=== PATIENT | female | born 2005 | race Caucasian/White ===

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

== ENCOUNTER 2024-05-22 09:06 | Emergency (ER) | payer MEDICAID, SELFPAY ==
[2024-05-22 09:07] VITALS: BP 139/68; PULSE 49; RESP 16; TEMP 36.2; O2SAT 98; BMI 18.0
--- NOTE | 2024-05-22 09:28 | ED.VIS.GI ---
HPI HPI - GI History of Present Illness Chief Complaint: Nausea/Vomiting Informant: patient and friend Narrative Narrative: Patient states she is currently on day #4 having dysuria, frequency. She went to urgent care yesterday and was prescribed Pyridium and an antibiotic, she is not sure which one it was. She has not been able to take the pills after taking the first doses because she started vomiting and has been vomiting uncontrollably ever since, along with gradual development of pain in her right low back. No fevers or chills. No diarrhea. No abdominal pain. PFSH PFSH Medical History no medical history no medical history Home Medications ?Medication ?Instructions ?Recorded ?Last Taken ?Type promethazine 25 mg tablet 25 mg PO TID PRN nausea and 02/18/23 Unknown Rx vomiting #20 tabs ciprofloxacin HCl 500 mg tablet 500 mg PO BID #14 tabs 05/22/24 Unknown Rx (Cipro) ondansetron 4 mg disintegrating 4 mg PO Q8H PRN nausea and 05/22/24 Unknown Rx tablet vomiting #12 tabs Allergy/AdvReac Type Severity Reaction Status Date / Time No Known Allergies Allergy Verified 05/22/24 09:07 Surgical History (Updated 05/22/24 @ 09:38 by Gifty Keyes) Hx of plastic surgery Social History Smoking Status: Current every day smoker tobacco type: cigarettes ROS ROS ED Constitutional Constitutional ED: Reports malaise; Denies chills or fever(s) Eyes Eyes: Denies change in vision or diplopia ENT ENT ED: Denies rhinorrhea or sore throat Cardiovascular Cardiovascular: Denies chest pain or palpitations Respiratory/Chest Respiratory/Chest: Denies cough or dyspnea Gastrointestinal Gastrointestinal: Reports nausea and vomiting; Denies abdominal pain or diarrhea Genitourinary Genitourinary ED: Reports dysuria and urinary frequency; Denies hematuria or vaginal discharge Musculoskeletal Musculoskeletal: Reports back pain; Denies neck pain Integumentary Denies abscess or rash Neurologic Neurologic: Denies headache(s), paresthesias or weakness Psychiatric Psychiatric: Denies suicidal thoughts EXAM Physical Exam Const Vital Signs: 05/22/24 09:07 05/22/24 11:07 Temperature 97.2 F L Temperature Source Temporal Pulse Rate 49 L 56 L Respiratory Rate 16 16 Blood Pressure 139/68 H 133/76 H Blood Pressure Mean 91 95 Pulse Ox 98 98 Oxygen Delivery Method Room Air Room Air Positive well nourished and well developed General Appearance ED: well developed and NAD HEENT Reports moist mucous membranes normocephalic and atraumatic Eyes PERRL and EOMs intact bilaterally Neck full ROM and supple Resp normal respiratory effort and clear to auscultation bilaterally Cardio regular rate, regular rhythm and no murmurs GI non-tender and non-distended Auscultation: normoactive bowel sounds Palpation: soft Speculum Exam - Vagina: Negative for vaginal discharge Back/Spine General Back: CVA tenderness right (no rash) and other FROM Extremity normal to inspection General Extremety ED: Negative for edema, pulses abnormal or tenderness General Extremity: Negative for edema or pulses abnormal Neuro oriented x3, CN's II-XII intact bilaterally and no sensory deficits noted Sensorium / Orientation: awake and alert Motor Exam: strength 5/5 throughout Psych mental status grossly normal and thought process normal Skin no rashes or lesions noted and no wounds MDM MDM MDM Narrative Medical decision making narrative: I suspect patient has pyelonephritis. While ruling out and assessing labs, will get a urine sample, give her fluids, Zofran, Toradol, and empiric Rocephin after she provides us a urine sample. Urine does show positive nitrite, there is no blood in her urine, and she has a leukocytosis, along with her symptoms this is all consistent with pyelonephritis as opposed to urolithiasis/obstructive uropathy. She is given IV Rocephin as above and after the medication she is feeling much better. Her is negative ruling out ectopic. She is tolerating oral fluids and her symptoms are well-controlled. Therefore outpatient treatment is reasonable. She is not septic clinically or hemodynamically. Unknown what the antibiotic is that she was already prescribed so I advised not taking it on going to prescribe her 1 week of ciprofloxacin as well as something for nausea. She comfortable with that plan. Lab Data Attestation: I reviewed the patient's lab results. Labs: Laboratory Results - last 24 hr 05/22/24 05/22/24 09:23 09:41 WBC 15.6 H RBC 5.03 Hgb 13.6 Hct 40.5 MCV 80.5 L MCH 27.0 MCHC 33.6 RDW Std Deviation 36.3 RDW Coeff of [place] 12.5 Plt Count 256 MPV 9.8 Immature Gran % (Auto) 0.400 Neut % (Auto) 92.3 H Lymph % (Auto) 4.3 L Andrew % (Auto) 2.7 Eos % (Auto) 0.0 Baso % (Auto) 0.3 Absolute Neuts (auto) 14.4 H Absolute Lymphs (auto) 0.68 L Nucleated RBC % 0 Sodium 138 Potassium 3.8 Chloride 107 Carbon Dioxide 22.0 Anion Gap 9 BUN 13 Creatinine 0.96 Estim Creat Clear Calc 68.07 Est GFR (MDRD) Af Amer 96 Est GFR (MDRD) Non-Af 79 BUN/Creatinine Ratio 13.6 Glucose 185 H Calcium 9.9 Serum , Qual NEGATIVE Urine Color Straw Urine Clarity Clear Urine pH 8.0 Ur Specific [place] 1.010 Urine Protein 30 H Urine Glucose (UA) 50 H Urine Ketones 150 A* Urine Occult Blood 10 H Urine Nitrite Positive H Urine Bilirubin Negative Urine Urobilinogen 1 H Ur Leukocyte Esterase 25 H Urine RBC 0-5 SEEN Urine WBC 5-10 SEEN Ur Squamous Epith Cells 0-5 SEEN Urine Bacteria 0 SEEN Urine Mucus 0 SEEN Discharge Plan Triage Chief Complaint: Nausea/Vomiting ED Provider: Irving Martinez Dx/Rx/DC Orders Clinical Impression: Pyelonephritis Instructions: Kidney Infec Dc Prescriptions: New ciprofloxacin HCl [Cipro] 500 mg tablet 500 mg PO BID Qty: 14 0RF Continued promethazine 25 mg tablet 25 mg PO TID PRN (Reason: nausea and vomiting) Qty: 20 0RF Changed ondansetron 4 mg tablet,disintegrating 4 mg PO Q8H PRN (Reason: nausea and vomiting) Qty: 12 0RF Discontinued amoxicillin-pot clavulanate 875-125 mg tablet 1 tab PO BID Qty: 20 0RF Primary Care Provider: Huyen Jain Referrals: Huyen Jain [Primary Care Provider] - 3-5 Days Print Language: Vietnamese Disposition Disposition: Home, Self Care
[2024-05-22] MEDS: Ondansetron 4 MG/2 ML Vial IV (09:35)
[2024-05-22] MEDS: Ketorolac 30 MG/ML Syringe IV (09:35)
[2024-05-22] MEDS: 0.9% Normal Saline (1000mL) 1,000 ML 999 ML IV (09:35)
[2024-05-22 09:40] LABS: Absolute Lymphocyte Count 0.68 X10^3/uL (0.83-4.51); Absolute Neutrophil Count 14.4 X10^3/uL (2.0-7.7); Basophil# 0.04 X10^3/uL; Basophil% 0.3 % (0-1); Hematocrit 40.5 % (37-47); Hemoglobin 13.6 g/dL (12.0-15.0); Lymphocyte # 0.68 X10^3/ul (0.83-4.51); Lymphocyte % 4.3 % (19-41); Mean Corp Hgb Conc 33.6 g/dL (32-36); Mean Corpuscular Volume 80.5 fL (81-99); Mean Platelet Vol. 9.8 fl (6.2-12.0); Monocyte# 0.42 X10^3/uL; Monocyte% 2.7 % (0-10); NRBC Flagged by Analyzer 0 % (0-5); Neutrophil # 14.43 X10^3/uL (2.7-7.7); Neutrophil % 92.3 % (47-70); Platelet Count 256 K/mm3 (150-450); RBC Distribution Width CV 12.5 % (11.6-14.6); RBC Distribution Width SD 36.3 fl (35.1-43.9); Red Blood Count 5.03 M/mm3 (4.2-5.4); White Blood Count 15.6 K/mm3 (4.4-11.0)
[2024-05-22 09:48] LABS: Bacteria 0 SEEN /hpf (None Seen); Mucous, Urine 0 SEEN /hpf (<or=2+)
[2024-05-22 09:53] LABS: Anion Gap 9 (5-15); BUN 13 mg/dL (7-18); BUN/Creat Ratio 13.6 RATIO (10-20); Calcium,Total 9.9 mg/dL (8.5-10.1); Chloride 107 mmol/L (98-107); Creatinine, Serum 0.96 mg/dL (0.55-1.02); EST Glomerular Filtration Rate 79 mL/min (>60); Est Glom Filt Rate - Afr Amer 96 mL/min (>60); Estimated Creatinine Clearance 68.07 ml/min; Glucose 185 mg/dL (74-106); Potassium 3.8 mmol/L (3.5-5.1); Sodium Level 138 mmol/L (136-145)
[2024-05-22 10:01] LABS: Color, Urine Straw (Yellow); Glucose, Dipstick 50 mg/dl (Normal); Leukocyte Esterase-Dipstick 25 /ul (Negative); Nitrite-Dipstick Positive (Negative); Occult Blood-Urine 10 /ul (Negative); Protein-Dipstick 30 mg/dl (Negative); Urine Bilirubin Dipstick Negative (Negative); Urine Clarity Clear (Clear); Urine Urobilinogen 1 mg/dl (Normal)
[2024-05-22 10:04] LABS: Internal QC Validated? YES +Cl - CLEAR BKGD; Pregnancy, Serum, hCG Quali. NEGATIVE Negative
[2024-05-22 10:09] LABS: Ketone-Dipstick 150 mg/dl (Negative)
[2024-05-22] MEDS: Ceftriaxone 1 GM/50 ML BAG IV (10:14)
[2024-05-22 10:31] LABS: Red Blood Cells-Urine 0-5 SEEN /hpf (0-5); Squamous Epithelial Cells - UA 0-5 SEEN /hpf (5-10); White Blood Cells 5-10 SEEN /hpf (0-5)
[2024-05-22 11:07] VITALS: BP 133/76; PULSE 56; RESP 16; O2SAT 98
[2024-05-22 11:56] VITALS: BP 128/77; PULSE 62; RESP 16; TEMP 36.6; O2SAT 99
== END 2024-05-22 11:57 | disposition home or self-care (01) ==
PROVIDERS: Emergency Provider Emergency Medicine; Visit Provider Emergency Medicine
DX: N12 Tubulo-interstitial nephritis, not specified as acute or chronic (principal); F17.210 Nicotine dependence, cigarettes, uncomplicated
CPT/HCPCS: 80048; 81001; 84703; 85025; 87086; 99283; J7030; J7050; A4216; J2405

== ENCOUNTER 2024-09-18 13:00 | Emergency (ER) | payer MEDICAID, SELFPAY ==
[2024-09-18 13:02] VITALS: BP 136/91; PULSE 117; RESP 20; TEMP 35.9; O2SAT 98
--- NOTE | 2024-09-18 13:45 | ED.RN ---
PT. WALKS OUT STATES SHE WILL BE BACK LATER. HAS BEEN WAITING FOR A DRPatt FOR AN HOUR. INFORMED PT. THAT THEY HAVE BEEN TIED UP. AND HER CHART IS NEXT UP FOR THEM TO SEE. PT. STATES ITS OK IM JUST GOING TO GO HOME.
== END 2024-09-18 13:52 | disposition left against medical advice (07) ==
LOC: ED 13:51
DX: R11.2 Nausea with vomiting, unspecified (principal)
CPT/HCPCS: 99281

== ENCOUNTER 2024-09-19 00:30 | Emergency (ER) | payer MEDICAID, SELFPAY ==
[2024-09-19 00:32] VITALS: BP 128/75; PULSE 67; RESP 20; TEMP 36.6; O2SAT 100; BMI 19.8
[2024-09-19 00:47] LABS: Absolute Lymphocyte Count 1.12 X10^3/uL (0.83-4.51); Absolute Neutrophil Count 19.8 X10^3/uL (2.0-7.7); Basophil# 0.06 X10^3/uL; Basophil% 0.3 % (0-1); Eosinophil# 0.01 X10^3/uL; Hematocrit 40.6 % (37-47); Lymphocyte # 1.12 X10^3/ul (0.83-4.51); Lymphocyte % 5.2 % (19-41); Mean Corp Hgb Conc 34.5 g/dL (32-36); Mean Corpuscular Hgb 27.5 pg (27.0-32.0); Mean Corpuscular Volume 79.6 fL (81-99); Mean Platelet Vol. 9.9 fl (6.2-12.0); Monocyte% 2.8 % (0-10); NRBC Flagged by Analyzer 0 % (0-5); Neutrophil # 19.75 X10^3/uL (2.7-7.7); Neutrophil % 91.1 % (47-70); Platelet Count 295 K/mm3 (150-450); RBC Distribution Width CV 12.1 % (11.6-14.6); RBC Distribution Width SD 34.9 fl (35.1-43.9); White Blood Count 21.7 K/mm3 (4.4-11.0)
[2024-09-19 01:03] LABS: Internal QC Validated? YES +Cl - CLEAR BKGD; Pregnancy, Serum, hCG Quali. NEGATIVE Negative; Record Kit Lot#, Serum Preg. 872158
[2024-09-19 01:03] LABS: Color, Urine Yellow (Yellow); Glucose, Dipstick Normal (Normal); Ketone-Dipstick 15 mg/dl (Negative); Leukocyte Esterase-Dipstick 25 /ul (Negative); Mucous, Urine 0 SEEN /hpf (<or=2+); Nitrite-Dipstick Negative (Negative); Occult Blood-Urine 250 /ul (Negative); Protein-Dipstick 30 mg/dl (Negative); Urine Bilirubin Dipstick Negative (Negative); Urine Clarity Sl. Cloudy (Clear); Urine Urobilinogen Normal (Normal)
[2024-09-19 01:05] LABS: ALB/GLOB Ratio 1.4 RATIO (0.9-2.4); AST(SGOT) 25 U/L (15-37); Alanine Aminotransfer ALT/SGPT 39 U/L (13-56); Albumin, Serum 4.5 g/dL (3.2-5.0); Alkaline Phosphatase 56 U/L (45-117); Anion Gap 13 (5-15); BUN 14 mg/dL (7-18); BUN/Creat Ratio 15.3 RATIO (10-20); Chloride 110 mmol/L (98-107); Creatinine, Serum 0.92 mg/dL (0.55-1.02); EST Glomerular Filtration Rate 83 mL/min (>60); Est Glom Filt Rate - Afr Amer 100 mL/min (>60); Estimated Creatinine Clearance 75.71 ml/min; Globulin 3.2 g/dL (2.2-4.2); Glucose 154 mg/dL (74-106); Potassium 3.7 mmol/L (3.5-5.1); Protein, Total 7.7 g/dL (6.4-8.2); Sodium Level 141 mmol/L (136-145)
[2024-09-19 01:17] LABS: Bacteria 2+ /hpf (None Seen); Red Blood Cells-Urine 10-25 SEEN /hpf (0-5); Squamous Epithelial Cells - UA 5-10 SEEN /hpf (5-10); White Blood Cells 5-10 SEEN /hpf (0-5)
--- NOTE | 2024-09-19 01:33 | EDS_ITS ---
HPI HPI - GI History of Present Illness Chief Complaint: Nausea/Vomiting/Diarrhea Informant: patient Nausea/Vomiting/Emesis GI Symptom: Positive for Nausea and Vomiting Onset: Today and Hours Quality: Positive for Nonbilious Severity: Moderate Diarrhea/Melena/Hematochezia GI Symptom: Positive for Diarrhea Onset: Today Stool Quality: Positive for Loose Severity: Mild Associated Symptoms Associated Symptoms: Negative for Dysuria, Frequency, Hematuria or Urgency Narrative Narrative: 19-year-old female history of marijuana use and cyclic vomiting syndrome. States she started having nausea vomiting diarrhea today around 10 AM. No melena. No hematemesis. Really no abdominal pain except when she is vomiting. No dysuria. No fever. Prior history of same. Prior similar symptoms: Yes Recent Illness/Hospitalization: No PFSH PFSH Home Medications ?Medication ?Instructions ?Recorded ?Last Taken ?Type promethazine 25 mg tablet 25 mg PO TID PRN nausea and 02/18/23 Unknown Rx vomiting #20 tabs ciprofloxacin HCl 500 mg tablet 500 mg PO BID #14 tabs 05/22/24 Unknown Rx (Cipro) ondansetron 4 mg disintegrating 4 mg PO Q8H PRN nausea and 05/22/24 Unknown Rx tablet vomiting #12 tabs ondansetron 4 mg disintegrating 4 mg PO Q6H PRN nausea and 09/19/24 Unknown Rx tablet vomiting #10 tabs Allergy/AdvReac Type Severity Reaction Status Date / Time No Known Allergies Allergy Verified 09/19/24 00:32 Surgical History Hx of plastic surgery Social History Smoking Status: Current every day smoker tobacco type: cigarettes ROS ROS ED ROS Narrative Nausea, vomiting diarrhea today. Constitutional Constitutional ED: Denies chills or fever(s) ENT ENT ED: Denies ear pain Cardiovascular Cardiovascular: Denies chest pain Respiratory/Chest Respiratory/Chest: Denies cough or dyspnea Gastrointestinal Gastrointestinal: Reports diarrhea, nausea and vomiting; Denies abdominal pain, constipation or melena Genitourinary Genitourinary ED: Denies dysuria or hematuria Musculoskeletal Musculoskeletal: Denies arthralgias Integumentary Denies abscess Neurologic Neurologic: Denies headache(s) Psychiatric Psychiatric: Denies anxiety Endocrine Endocrinology: Denies polydipsia Hematologic/Lymphatic Hematologic/Lymphatic: Denies easy bleeding Allergic/Immunologic Allergic/Immunologic ED: Denies mouth swelling, tongue swelling or urticaria EXAM Physical Exam Narrative Exam Narrative: 19-year-old female vital signs are stable afebrile. Does not look septic toxic or in distress. Emesis in a bucket in the room. H EENT exam dry mucous membranes. Pupils round reactive light. Neck nontender no lymphadenopathy. Lungs clear to auscultation bilateral. Heart regular rate and rhythm rate about 70 no murmur. Chest wall ribs nontender. Abdomen soft nontender, nondistended normal bowel sounds without peritoneal signs. No obstruction or hernia. No right upper or right lower quadrant tenderness. No mass. Moving all 4 extremities. Nontender no edema. Back nontender. Neurologically patient is awake and alert no focal motor deficits. 5/5 telephone order clerk room service strength. Dorsi plantarflexion intact. Awake and alert. Answer questions following commands. NIH 0. Const Vital Signs: 09/19/24 00:32 09/19/24 02:31 Temperature 97.8 F Temperature Source Temporal Pulse Rate 67 74 Respiratory Rate 20 H 18 Blood Pressure 128/75 H 119/70 Blood Pressure Mean 92 86 Pulse Ox 100 98 Oxygen Delivery Method Room Air Room Air Positive well nourished and well developed; Negative for obese, cachectic, contractures or unkempt General Appearance ED: well developed and NAD; Negative for unkempt, cachectic, contractures or pallor Nutritional Appearance: Negative for cachectic or obese HEENT Reports dry mucous membranes; Denies moist mucous membranes normocephalic and atraumatic; Negative for trauma or tenderness Mouth ED: Yes dry mucous membranes Mouth: dry mucous membranes Eyes PERRL and EOMs intact bilaterally Neck no lymphadenopathy, supple and no JVD General: Negative for tenderness Resp normal respiratory effort and clear to auscultation bilaterally Cardio regular rate, regular rhythm, S1 normal heart sound, S2 normal heart sound and no murmurs GI non-tender, non-distended and no masses Inspection: Negative for abdominal distention Auscultation: normoactive bowel sounds Palpation: soft; Negative for tender, guarding, hernia, mass, pulsatile mass or rebound tenderness present Back/Spine no CVA tenderness Extremity full ROM General Extremety ED: Negative for edema or tenderness General Extremity: Negative for edema Neuro CN's II-XII intact bilaterally and moves all extremities Sensorium / Orientation: alert, oriented to person, oriented to place and oriented to time; Negative for orientation impaired, confused or lethargic Motor Exam: strength 5/5 throughout Psych mental status grossly normal and thought process normal Appearance: Negative for unkempt Attitude: No agitated Mood & Affect: Negative for anxious or tearful Skin no wounds General Skin Exam: Negative for jaundice or pallor Lesions: no lesions Rashes: no rashes MDM MDM MDM Narrative Medical decision making narrative: 19-year-old female with a history of cyclic vomiting. Nausea vomiting. Mildly dehydrated. Benign exam otherwise. Treated cyclic vomiting protocol with IV Ativan and fluids Zofran and stomach medication. Screening labs were obtained by nursing. I think the white count is elevated because of her vomiting. It has been elevated before. She has no signs of any infection. There is no signs of any acute abdomen. She does not need any imaging. Repeat exam at 3:42 AM patient doing well. She has some mild nausea which will be given another dose of Zofran. She is currently drinking ice water if she holds that down to be discharged home. Her vital signs are stable. Her abdomen is benign. I think this is cyclic vomiting most likely caused by marijuana use. History & Record Review Discussion w/independent historian: Patient Lab Data Attestation: I reviewed the patient's lab results. Lab results narrative: CBC shows a white count 21.7 she has an elevated white counts before. She was actively vomiting. H&H 14 and 40. Platelets 295. Electrolytes show gap of 13. Normal BUN of 14 creatinine 0.9. Glucose 154. Liver enzymes normal. Serum test negative. UA contaminated. No nitrates. 10-25 red cells. 5-10 white cells. 5-10 epithelial cells 2+ bacteria. She is having no urinary symptoms. This will not be treated as UTI. Labs: Laboratory Results - last 24 hr 09/19/24 09/19/24 00:42 00:55 WBC 21.7 H RBC 5.10 Hgb 14.0 Hct 40.6 MCV 79.6 L MCH 27.5 MCHC 34.5 RDW Std Deviation 34.9 L RDW Coeff of [place] 12.1 Plt Count 295 MPV 9.9 Immature Gran % (Auto) 0.600 Neut % (Auto) 91.1 H Lymph % (Auto) 5.2 L [place] % (Auto) 2.8 Eos % (Auto) 0.0 Baso % (Auto) 0.3 Absolute Neuts (auto) 19.8 H Absolute Lymphs (auto) 1.12 Nucleated RBC % 0 Sodium 141 Potassium 3.7 Chloride 110 H Carbon Dioxide 18.0 L Anion Gap 13 BUN 14 Creatinine 0.92 Estim Creat Clear Calc 75.71 Est GFR (MDRD) Af Amer 100 Est GFR (MDRD) Non-Af 83 BUN/Creatinine Ratio 15.3 Glucose 154 H Calcium 10.0 Total Bilirubin 1.00 AST 25 ALT 39 Alkaline Phosphatase 56 Total Protein 7.7 Albumin 4.5 Globulin 3.2 Albumin/Globulin Ratio 1.4 Serum , Qual NEGATIVE Urine Color Yellow Urine Clarity Sl. Cloudy Urine pH 8.0 Ur Specific [place] 1.010 Urine Protein 30 H Urine Glucose (UA) Normal Urine Ketones 15 H Urine Occult Blood 250 H Urine Nitrite Negative Urine Bilirubin Negative Urine Urobilinogen Normal Ur Leukocyte Esterase 25 H Urine RBC 10-25 SEEN Urine WBC 5-10 SEEN Ur Squamous Epith Cells 5-10 SEEN Urine Bacteria 2+ Urine Mucus 0 SEEN Discharge Plan Triage Chief Complaint: Nausea/Vomiting/Diarrhea ED Provider: Reji Patel Dx/Rx/DC Orders Clinical Impression: Cyclic vomiting syndrome, History of marijuana use Instructions: ED Cyclic Vomiting Syndrome Prescriptions: New ondansetron 4 mg tablet,disintegrating 4 mg PO Q6H PRN (Reason: nausea and vomiting) Qty: 10 0RF No Action promethazine 25 mg tablet 25 mg PO TID PRN (Reason: nausea and vomiting) Qty: 20 0RF ciprofloxacin HCl [Cipro] 500 mg tablet 500 mg PO BID Qty: 14 0RF ondansetron 4 mg tablet,disintegrating 4 mg PO Q8H PRN (Reason: nausea and vomiting) Qty: 12 0RF Primary Care Provider: Care Physician,No Primary Referrals: Han Cavazos MD [Non-Staff] - 3-5 Days if not improving Care Physician,No Primary [Primary Care Provider] - Activity Restrictions/Additional Instructions: Zofran as needed for nausea. You may swallow or let dissolve in your tongue. Plenty of fluids and rest. Increase your diet slowly as tolerated. Long-term definitely try to stop the marijuana use it can definitely cause this. It may take weeks to months after you stop to quit having the cyclic vomiting. Print Language: Somali Disposition Disposition: Home, Self Care
[2024-09-19] MEDS: Famotidine 200 MG/20 ML MDV 20 MG in 0.9% Normal Saline (Pres. free 8 ML 300 MG IV (01:46)
[2024-09-19] MEDS: 0.9% Normal Saline (1000mL) 1,000 ML 999 ML IV (01:46)
[2024-09-19] MEDS: Ondansetron 4 MG/2 ML Vial IV ×2 (01:46→04:05)
[2024-09-19] MEDS: LORazepam 2 MG/ML Syringe 1 MG IV (01:47)
[2024-09-19 02:31] VITALS: BP 119/70; PULSE 74; RESP 18; O2SAT 98
[2024-09-19 04:00] VITALS: BP 126/67; PULSE 70; RESP 18; TEMP 36.4; O2SAT 97
== END 2024-09-19 04:13 | disposition home or self-care (01) ==
PROVIDERS: Emergency Provider Emergency Medicine; Visit Provider Emergency Medicine
DX: R11.15 Cyclical vomiting syndrome unrelated to migraine (principal); E86.0 Dehydration; R19.7 Diarrhea, unspecified; F12.90 Cannabis use, unspecified, uncomplicated; F17.210 Nicotine dependence, cigarettes, uncomplicated
CPT/HCPCS: 80053; 81001; 84703; 85025; 99282; A4216; J2405

== ENCOUNTER 2024-10-09 21:31 | Emergency (ER) | payer MEDICAID, SELFPAY ==
[2024-10-09 21:32] VITALS: BP 126/73; PULSE 58; RESP 16; TEMP 36.9; O2SAT 98; BMI 19.6
[2024-10-09 23:06] LABS: Mucous, Urine 0 SEEN /hpf (<or=2+); Red Blood Cells-Urine 0 SEEN /hpf (0-5); White Blood Cells 0 SEEN /hpf (0-5)
[2024-10-09 23:08] LABS: Color, Urine Yellow (Yellow); Glucose, Dipstick Normal (Normal); Ketone-Dipstick 50 mg/dl (Negative); Leukocyte Esterase-Dipstick Negative /ul (Negative); Nitrite-Dipstick Negative (Negative); Occult Blood-Urine 10 /ul (Negative); Protein-Dipstick 30 mg/dl (Negative); Urine Bilirubin Dipstick Negative (Negative); Urine Clarity Sl. Cloudy (Clear); Urine Urobilinogen Normal (Normal)
[2024-10-09 23:10] LABS: Internal QC Validated? YES +Cl - CLEAR BKGD; Pregnancy, Urine Negative Negative
[2024-10-09 23:21] LABS: Bacteria 2+ /hpf (None Seen); Squamous Epithelial Cells - UA 5-10 SEEN /hpf (5-10)
[2024-10-09] MEDS: Ondansetron 4 MG/2 ML Vial IV (23:25)
--- NOTE | 2024-10-09 23:29 | CT_ITS ---
EXAM: CT ABDOMEN AND PELVIS WITH INTRAVENOUS CONTRAST CLINICAL INDICATION: RLQ abd pain TECHNIQUE: Helically acquired images were obtained of the abdomen and pelvis with intravenous contrast. This CT exam was performed using one or more of the following dose reduction techniques: automated exposure control, adjustment of the mA and/or kV according to patient size, and/or use of iterative reconstruction technique. CONTRAST: 100 cc of Isovue-370 IV. RADIATION DOSE: CTDIvol = 5.92 mGy, DLP = 228.27 mGy-cm COMPARISON: No relevant prior studies available. FINDINGS: LOWER THORAX: Unremarkable. Lung bases are clear. No cardiomegaly. No significant pericardial effusion. ABDOMEN: LIVER: Unremarkable. Homogeneous. No focal mass. GALLBLADDER AND BILE DUCTS: Unremarkable. No calcified gallstones. No gallbladder distention or wall edema. No intra- or extrahepatic biliary ductal dilation. PANCREAS: Unremarkable. No focal cystic or solid mass. SPLEEN: Unremarkable. Normal size without focal cystic or solid mass. ADRENALS: Unremarkable. No nodules. KIDNEYS AND URETERS: Unremarkable. Normal renal size and position. No hydronephrosis. STOMACH AND BOWEL: Unremarkable. No stomach or bowel distention. No focal inflammatory change. PELVIS: APPENDIX: Normal appendix. BLADDER: Unremarkable. REPRODUCTIVE: Small collapsed follicle left ovary. ABDOMEN and PELVIS: INTRAPERITONEAL SPACE: Small amount of nonspecific low-density free fluid in the pelvic cul-de-sac. No free air. BONES/JOINTS: Unremarkable. No suspicious lytic or blastic abnormality. SOFT TISSUES: Unremarkable. No discrete abdominal or pelvic wall hernia. VASCULATURE: Unremarkable. Abdominal aorta is non-dilated. LYMPH NODES: Unremarkable. No enlarged lymph nodes. CT/Abdomen/Pelvis W IV Cont ONLY IMPRESSION: 1. Small amount of nonspecific low-density free fluid in the pelvic cul-de-sac. 2. Small collapsed follicle left ovary. Electronically Signed: Rashaad Keyes MD at 0:29 EST ,
[2024-10-09 23:32] VITALS: BP 116/63; PULSE 61; RESP 16; O2SAT 97
[2024-10-09 23:41] LABS: Absolute Neutrophil Count 11.8 X10^3/uL (2.0-7.7); Basophil# 0.03 X10^3/uL; Basophil% 0.2 % (0-1); Hematocrit 41.4 % (37-47); Lymphocyte % 6.7 % (19-41); Mean Corp Hgb Conc 33.8 g/dL (32-36); Mean Corpuscular Hgb 27.4 pg (27.0-32.0); Monocyte# 0.59 X10^3/uL; Monocyte% 4.4 % (0-10); NRBC Flagged by Analyzer 0 % (0-5); Neutrophil # 11.84 X10^3/uL (2.7-7.7); Neutrophil % 88.3 % (47-70); Platelet Count 279 K/mm3 (150-450); RBC Distribution Width CV 12.3 % (11.6-14.6); RBC Distribution Width SD 35.9 fl (35.1-43.9); Red Blood Count 5.11 M/mm3 (4.2-5.4); White Blood Count 13.4 K/mm3 (4.4-11.0)
--- NOTE | 2024-10-09 23:59 | EX.ED.DYSGE1 ---
HPI History of Present Illness Chief Complaint: Nausea/Vomiting Narrative Narrative: Patient is a 19-year-old female with no known significant past medical history who presented to the emergency department with a chief complaint of nausea vomiting and abdominal pain. Patient states that earlier today her symptoms started and denies any recent sick contacts. 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 Patient denies any previous abdominal surgeries. Patient states that she has Zofran at home and states that she tried to take this however she still is persistently vomiting. PFSH PFSH Home Medications ?Medication ?Instructions ?Recorded ?Last Taken ?Type ondansetron 4 mg disintegrating 4 mg PO Q8H PRN nausea and 05/22/24 Unknown Rx tablet vomiting #12 tabs ondansetron 4 mg disintegrating 4 mg PO Q6H PRN nausea and 09/19/24 Unknown Rx tablet vomiting #10 tabs promethazine 25 mg tablet 25 mg PO Q6H PRN nausea and 10/10/24 Unknown Rx vomiting #20 tabs Allergy/AdvReac Type Severity Reaction Status Date / Time No Known Allergies Allergy Verified 10/09/24 21:33 Surgical History Hx of plastic surgery Social History Smoking Status: Current every day smoker tobacco type: cigarettes ROS ROS ED ROS Narrative Constitutional: Denies any fevers, chills, headaches, lightheadedness, dizziness Eyes: Denies change in vision double vision blurry vision Cardiovascular: Denies chest pain Respiratory: Denies coughing shortness of breath Abdomen: Complains of abdominal pain, nausea, vomiting as noted above : Denies any urinary symptoms Neurological: Denies any numbness, weakness, tingling Musculoskeletal: Denies back pain Skin: Denies any rashes or lesions EXAM Physical Exam Narrative Exam Narrative: General: Patient lying in bed rest comfortably did not appear to be in acute distress Head: Atraumatic, normocephalic Eyes: PERRL body, EOMI bilateral, no conjunctival injection noted Neck: Soft, supple, trachea midline Cardiovascular: Regular rate and rhythm Respiratory: Clear to auscultation bilaterally Abdomen: Soft, nondistended, tenderness to palpation in the right lower quadrant no rebound or guarding on exam Extremities: +5/5 strength noted in the bilateral upper and lower extremities Neurological: Patient is following commands knew that she was at [facility] years 2023 Skin: Warm, dry, intact Const Vital Signs: 10/09/24 21:32 10/09/24 23:32 Temperature 98.4 F Temperature Source Oral Pulse Rate 58 L 61 Respiratory Rate 16 16 Blood Pressure 126/73 H 116/63 Blood Pressure Mean 90 80 Pulse Ox 98 97 Oxygen Delivery Method Room Air Room Air MDM MDM MDM Narrative Medical decision making narrative: Patient is a 19-year-old female who presents to the emergency department with a chief complaint of abdominal pain, nausea and vomiting. Patient will have a workup performed here on the differential diagnose includes but not limited to, viral gastroenteritis, , ectopic , UTI, cannabis hyperemesis syndrome. Patient given IV fluids, Zofran and be reevaluated. Patient CBC reviewed showed a white blood count of 13,000, hemoglobin 14, platelet count was noted to be normal at 279. Patient sodium was noted to be 137, potassium normal 3.7, creatinine was noted be 1.03. Patient AST and ALT were noted to be 23 and 74 respectively, lipase normal at 16. Patient's urinalysis reviewed and showed no evidence of infection test was negative. Patient CT abdomen pelvis with IV contrast was reviewed and showed small amount of nonspecific low-density free fluid in the pelvic cul-de-sac. Small collapsed follicle left ovary. On reevaluation the patient she states that she is feeling better but would like a a liter of fluids this was ordered. She states that this normally occurs around when she is about to start her menstrual cycle which she thinks that she is going to start soon. Patient was advised to picking supervisor and use the Phenergan as prescribed. She is encouraged return with worsening symptoms or concerns. She is agreeable this plan all question concerns answered she is discharged home in stable condition. Lab Data Labs: Laboratory Results - last 24 hr 10/09/24 10/09/24 22:43 23:01 WBC 13.4 H RBC 5.11 Hgb 14.0 Hct 41.4 MCV 81.0 MCH 27.4 MCHC 33.8 RDW Std Deviation 35.9 RDW Coeff of [place] 12.3 Plt Count 279 MPV 10.0 Immature Gran % (Auto) 0.400 Neut % (Auto) 88.3 H Lymph % (Auto) 6.7 L [place] % (Auto) 4.4 Eos % (Auto) 0.0 Baso % (Auto) 0.2 Absolute Neuts (auto) 11.8 H Absolute Lymphs (auto) 0.90 Nucleated RBC % 0 Sodium 137 Potassium 3.7 Chloride 104 Carbon Dioxide 21.0 Anion Gap 12 BUN 12 Creatinine 1.03 H Estim Creat Clear Calc 67.07 Est GFR (MDRD) Af Amer 87 Est GFR (MDRD) Non-Af 72 BUN/Creatinine Ratio 11.7 Glucose 140 H Calcium 9.6 Total Bilirubin 1.00 AST 23 ALT 74 H Alkaline Phosphatase 58 Total Protein 7.9 Albumin 4.3 Globulin 3.6 Albumin/Globulin Ratio 1.2 Lipase 16 Urine Color Yellow Urine Clarity Sl. Cloudy Urine pH 8.0 Ur Specific [place] 1.010 Urine Protein 30 H Urine Glucose (UA) Normal Urine Ketones 50 H Urine Occult Blood 10 H Urine Nitrite Negative Urine Bilirubin Negative Urine Urobilinogen Normal Ur Leukocyte Esterase Negative Urine RBC 0 SEEN Urine WBC 0 SEEN Ur Squamous Epith Cells 5-10 SEEN Urine Bacteria 2+ Urine Mucus 0 SEEN Urine Test Negative Radiography Diagnostic Testing: Clinical Impression(s) from Imaging Studies Abdomen/Pelvis CT 10/09/24 23:29 IMPRESSION: 1. Small amount of nonspecific low-density free fluid in the pelvic cul-de-sac. 2. Small collapsed follicle left ovary. Electronically Signed: Rashaad Keyes MD at 0:29 EST Reading Location ID and State: [address] [place] [address] Tel , Service support , Discharge Plan Triage Chief Complaint: Nausea/Vomiting ED Provider: Maurice Cortez Dx/Rx/DC Orders Clinical Impression: Nausea & vomiting Prescriptions: New promethazine 25 mg tablet 25 mg PO Q6H PRN (Reason: nausea and vomiting) Qty: 20 0RF No Action ondansetron 4 mg tablet,disintegrating 4 mg PO Q8H PRN (Reason: nausea and vomiting) Qty: 12 0RF ondansetron 4 mg tablet,disintegrating 4 mg PO Q6H PRN (Reason: nausea and vomiting) Qty: 10 0RF Primary Care Provider: Care Physician,No Primary Referrals: Care Physician,No Primary [Primary Care Provider] - Doreen Lemon [facility], [[facility] [place]] - Activity Restrictions/Additional Instructions: Use the Phenergan as prescribed. Start with a bland diet and advance as tolerated. Return with worsening symptoms or any concerns. Your CT did not show any thing surgical going on. Follow-up with the primary care physician that you referred to. Print Language: Mauritian Disposition Disposition: Home, Self Care
[2024-10-10 00:05] LABS: ALB/GLOB Ratio 1.2 RATIO (0.9-2.4); AST(SGOT) 23 U/L (15-37); Alanine Aminotransfer ALT/SGPT 74 U/L (13-56); Albumin, Serum 4.3 g/dL (3.2-5.0); Alkaline Phosphatase 58 U/L (45-117); Anion Gap 12 (5-15); BUN 12 mg/dL (7-18); BUN/Creat Ratio 11.7 RATIO (10-20); Calcium,Total 9.6 mg/dL (8.5-10.1); Chloride 104 mmol/L (98-107); Creatinine, Serum 1.03 mg/dL (0.55-1.02); EST Glomerular Filtration Rate 72 mL/min (>60); Est Glom Filt Rate - Afr Amer 87 mL/min (>60); Estimated Creatinine Clearance 67.07 ml/min; Globulin 3.6 g/dL (2.2-4.2); Glucose 140 mg/dL (74-106); Lipase 16 U/L (13-75); Potassium 3.7 mmol/L (3.5-5.1); Protein, Total 7.9 g/dL (6.4-8.2); Sodium Level 137 mmol/L (136-145)
[2024-10-10] MEDS: 0.9% Normal Saline (1000mL) 1,000 ML 999 ML IV (00:40)
[2024-10-10 01:00] VITALS: BP 127/68; PULSE 81; RESP 16; O2SAT 99
[2024-10-10 01:31] VITALS: BP 121/61; PULSE 74; RESP 16; TEMP 36.8; O2SAT 98
== END 2024-10-10 01:32 | disposition home or self-care (01) ==
PROVIDERS: Emergency Provider Emergency Medicine; Visit Provider Emergency Medicine
DX: R11.2 Nausea with vomiting, unspecified (principal); F12.90 Cannabis use, unspecified, uncomplicated; F17.210 Nicotine dependence, cigarettes, uncomplicated
CPT/HCPCS: 74177; 80053; 81001; 81025; 83690; 85025; 87631; 96361; 96374; 99283; Q9967; A4216; J2405

== ENCOUNTER 2025-02-25 10:44 | Emergency (ER) | payer MEDICAID, SELFPAY ==
[2025-02-25 10:44] VITALS: BP 158/107; PULSE 62; RESP 14; TEMP 36.4; O2SAT 98
[2025-02-25 10:49] VITALS: BMI 20.9
--- NOTE | 2025-02-25 11:03 | EDS_ITS ---
HPI History of Present Illness Chief Complaint: Nausea/Vomiting Detail of Chief Complaint: Vomiting and diarrhea Informant: patient Narrative Narrative: Patient presents to the emergency room with complaint of vomiting and diarrhea that started this morning. Patient states that she had dysuria as well as frequency 3 days ago so she went to urgent care and was started on nitrofurantoin. She had been doing relatively well till this morning. She has vomited multiple times and cannot keep anything down. She has had 2 watery stools as well. She denies any blood in her vomit or stool. Last menstrual period was February 08 and lasted 9 days which is unusual as it normally last about 5 days. She denies fevers or chills or sweats. She denies any back pain. She describes just diffuse abdominal discomfort. PFSH PFSH Home Medications ?Medication ?Instructions ?Recorded ?Last Taken ?Type ondansetron 4 mg disintegrating 4 mg PO Q6H PRN nausea and 09/19/24 02/25/25 Rx tablet vomiting #10 tabs promethazine 25 mg tablet 25 mg PO Q6H PRN nausea and 10/10/24 Unknown Rx vomiting #20 tabs nitrofurantoin 1 cap PO Q12H 02/25/2502/24 History monohydrate/macrocrystals 100 mg capsule promethazine 25 mg rectal 25 mg MD Q6H PRN nausea and 02/25/25 Unknown Rx suppository vomiting #12 ea Allergy/AdvReac Type Severity Reaction Status Date / Time No Known Allergies Allergy Verified 02/25/25 10:44 Surgical History Hx of plastic surgery Social History Smoking Status: Current every day smoker tobacco type: e-cigarettes ROS ROS ED Review of Systems ROS Unobtainable: other Constitutional Constitutional ED: Reports lethargy; Denies chills, fever(s), sweats or weight loss Eyes Eyes: Denies blurry vision, change in vision or diplopia ENT ENT ED: Denies rhinorrhea or sore throat Cardiovascular Cardiovascular: Denies chest pain, orthopnea or racing heartbeat Respiratory/Chest Respiratory/Chest: Denies cough, dyspnea, dyspnea on exertion, orthopnea or sputum Gastrointestinal Gastrointestinal: Reports abdominal pain, diarrhea, nausea and vomiting Genitourinary Genitourinary ED: Denies dysuria, hematuria or urinary frequency Musculoskeletal Musculoskeletal: Denies arthralgias, back pain, myalgias or neck pain Integumentary Denies abscess, Abrasions or rash Neurologic Neurologic: Denies headache(s) or weakness Psychiatric Psychiatric: Denies anxiety, depression or suicidal thoughts Endocrine Endocrinology: Denies polydipsia, polyphagia or polyuria Hematologic/Lymphatic Hematologic/Lymphatic: Denies easy bleeding, easy bruising or lymphadenopathy Allergic/Immunologic Allergic/Immunologic ED: Denies mouth swelling, tongue swelling or urticaria EXAM Physical Exam Const Vital Signs: 02/25/25 10:44 02/25/25 11:57 02/25/25 12:00 Temperature 97.5 F L 98.5 F 98.4 F Temperature Source Temporal Oral Oral Pulse Rate 62 50 L 54 L Respiratory Rate 14 16 16 Blood Pressure 158/107 H 125/63 H 115/55 L Blood Pressure Mean 124 83 75 Pulse Ox 98 100 100 Oxygen Delivery Method Room Air Room Air 02/25/25 12:55 02/25/25 14:03 Temperature Temperature Source Pulse Rate 50 L 65 Respiratory Rate 16 12 Blood Pressure 95/63 123/73 H Blood Pressure Mean 73 89 Pulse Ox 100 100 Oxygen Delivery Method Room Air Room Air Positive well nourished and well developed General Appearance ED: well developed and NAD HEENT Reports TM's clear and moist mucous membranes normocephalic and atraumatic; Negative for trauma or tenderness Tympanic Membrane ED: Yes TM's clear Eyes PERRL and EOMs intact bilaterally General Eye ED: Negative for pale conjunctiva or scleral icterus Neck no lymphadenopathy, supple and no JVD General: Negative for tenderness Chest Wall inspection of chest normal and palpation of chest normal Chest: Negative for tenderness Resp normal respiratory effort and clear to auscultation bilaterally Effort and Inspection: Negative for respiratory distress or pain with movement Auscultation: Negative for rhonchi, wheezes or diminished lung sounds Cardio regular rate, regular rhythm, S1 normal heart sound, S2 normal heart sound and no murmurs Peripheral Pulses: pulses 2+ throughout GI normal to inspection, nondistended, normoactive bowel sounds, soft to palpation, non-distended and no masses GI Narrative: Mild diffuse tenderness. There is no rebound, rigidity, or peritoneal signs. No mass palpated. Back/Spine no CVA tenderness and no thoracic nor lumbar tenderness Extremity normal to inspection General Extremety ED: Negative for edema General Extremity: Negative for edema Neuro oriented x3, CN's II-XII intact bilaterally, no sensory deficits noted and gait normal Sensorium / Orientation: awake, alert, oriented to person, oriented to place and oriented to time Motor Exam: strength 5/5 throughout and strength abnormal Psych mental status grossly normal Skin no rashes or lesions noted and no wounds MDM MDM MDM Narrative Medical decision making narrative: Patient presents with vomiting as well as abdominal pain and diarrhea. Recently diagnosed with a UTI and currently on Macrobid. She has Zofran at home but cannot keep anything down. In the differential would be viral gastroenteritis versus pyelonephritis versus unresolved UTI versus other acute intra-abdominal process such as appendicitis or bowel obstruction. IV line established. CBC with differential obtained showed an elevated white count of 15.0 with hemoglobin 14 and platelet count of 306. Chemistries unremarkable. Glucose was 155. hCG was negative. Urinalysis showed 0-5 WBCs with only +1 bacteria which is not consistent with infection. CT scan of the abdomen pelvis with IV contrast obtained showed hepatomegaly with fatty infiltration and fecal retention consistent with constipation. Initially on arrival she was medicated with Zofran as well as dicyclomine. She continued to complain of nausea and continue to have emesis and was given 5 mg of Reglan IV. She continued to complain of nausea and was given a second dose of Reglan 5 mg. She was also given a milligram of Ativan. She stating that she is feeling improved after treatment. She received 2 L of normal saline. She is asking to go home. She does not want to be admitted. I will write her for Phenergan suppositories. Recommended she return if persistent vomiting, diarrhea, dehydration, or condition worsen anyway. Suspect possibly a viral gastroenteritis. We also discussed discontinuing her marijuana usage as this could lead to a hyperemesis type state. Lab Data Attestation: I reviewed the patient's lab results. Labs: Laboratory Results - last 24 hr 02/25/25 02/25/25 11:00 11:14 WBC 15.0 H RBC 5.08 Hgb 14.1 Hct 41.1 MCV 80.9 L MCH 27.8 MCHC 34.3 RDW Std Deviation 35.1 RDW Coeff of [place] 12.0 Plt Count 306 MPV 9.8 Immature Gran % (Auto) 0.400 Neut % (Auto) 79.9 H Lymph % (Auto) 13.9 L [place] % (Auto) 4.8 Eos % (Auto) 0.3 Baso % (Auto) 0.7 Absolute Neuts (auto) 12.0 H Absolute Lymphs (auto) 2.08 Nucleated RBC % 0 Sodium 141 Potassium 3.5 Chloride 106 Carbon Dioxide 20.4 L Anion Gap 14 BUN 8 Creatinine 0.92 Estim Creat Clear Calc 72.99 Est GFR (MDRD) Non-Af 91 BUN/Creatinine Ratio 8.3 L Glucose 155 H Calcium 9.8 Serum , Qual NEGATIVE Urine Color Yellow Urine Clarity Clear Urine pH 6.0 Ur Specific [place] 1.020 Urine Protein 30 H Urine Glucose (UA) Normal Urine Ketones 50 H Urine Occult Blood 10 H Urine Nitrite Negative Urine Bilirubin Negative Urine Urobilinogen Normal Ur Leukocyte Esterase 25 H Urine RBC 0-5 SEEN Urine WBC 0-5 SEEN Ur Squamous Epith Cells 5-10 SEEN Urine Bacteria 1+ Hyaline Casts 0-5 SEEN Urine Mucus 0 SEEN Radiography Diagnostic Testing: Clinical Impression(s) from Imaging Studies Abdomen/Pelvis CT 02/25/25 12:38 IMPRESSION: 1. Hepatomegaly with fatty infiltration. 2. Fecal retention in the colon consistent with constipation. Reading Location: [facility] Discharge Plan Triage Chief Complaint: Nausea/Vomiting ED Provider: Stephanie Hu Dx/Rx/DC Orders Clinical Impression: Nausea vomiting and diarrhea Instructions: ED Diarrhea, Unknown Cause, ED Vomiting (Adult) Prescriptions: New promethazine 25 mg suppository 25 mg MD Q6H PRN (Reason: nausea and vomiting) Qty: 12 0RF No Action ondansetron 4 mg tablet,disintegrating 4 mg PO Q6H PRN (Reason: nausea and vomiting) Qty: 10 0RF promethazine 25 mg tablet 25 mg PO Q6H PRN (Reason: nausea and vomiting) Qty: 20 0RF nitrofurantoin monohyd/m-cryst 100 mg capsule 1 cap PO Q12H Patient Comments: START DATE- 02/23/25 Primary Care Provider: Care Physician,No Primary Referrals: Vicente Lorenzana MD [Med Staff - Active Staff] - 3-5 Days Care Physician,No Primary [Primary Care Provider] - Print Language: Chinese Disposition Disposition: Home, Self Care
[2025-02-25 11:12] LABS: Absolute Lymphocyte Count 2.08 X10^3/uL (0.83-4.51); Basophil# 0.11 X10^3/uL; Basophil% 0.7 % (0-1); Eosinophil# 0.04 X10^3/uL; Eosinophils% 0.3 % (0-5); Hematocrit 41.1 % (37-47); Hemoglobin 14.1 g/dL (12.0-15.0); Lymphocyte # 2.08 X10^3/ul (0.83-4.51); Lymphocyte % 13.9 % (19-41); Mean Corp Hgb Conc 34.3 g/dL (32-36); Mean Corpuscular Hgb 27.8 pg (27.0-32.0); Mean Corpuscular Volume 80.9 fL (81-99); Mean Platelet Vol. 9.8 fl (6.2-12.0); Monocyte# 0.72 X10^3/uL; Monocyte% 4.8 % (0-10); NRBC Flagged by Analyzer 0 % (0-5); Neutrophil # 11.97 X10^3/uL (2.7-7.7); Neutrophil % 79.9 % (47-70); Platelet Count 306 K/mm3 (150-450); RBC Distribution Width SD 35.1 fl (35.1-43.9); Red Blood Count 5.08 M/mm3 (4.2-5.4)
[2025-02-25] MEDS: 0.9% Normal Saline (1000mL) 1,000 ML 999 ML IV ×2 (11:13→13:01)
[2025-02-25] MEDS: Ondansetron 4 MG/2 ML Vial IV (11:14)
[2025-02-25] MEDS: Dicyclomine 20 MG/2 ML Vial IM (11:14)
[2025-02-25 11:18] LABS: Mucous, Urine 0 SEEN /hpf (<or=2+)
[2025-02-25 11:21] LABS: Color, Urine Yellow (Yellow); Glucose, Dipstick Normal (Normal); Ketone-Dipstick 50 mg/dl (Negative); Leukocyte Esterase-Dipstick 25 /ul (Negative); Nitrite-Dipstick Negative (Negative); Occult Blood-Urine 10 /ul (Negative); Protein-Dipstick 30 mg/dl (Negative); Urine Bilirubin Dipstick Negative (Negative); Urine Clarity Clear (Clear); Urine Urobilinogen Normal (Normal)
[2025-02-25 11:23] LABS: Internal QC Validated? YES +Cl - CLEAR BKGD; Pregnancy, Serum, hCG Quali. NEGATIVE Negative
[2025-02-25 11:31] LABS: Anion Gap 14 (5-15); BUN 8 mg/dL (4-19); BUN/Creat Ratio 8.3 RATIO (10-20); Calcium,Total 9.8 mg/dL (7.6-11.0); Carbon Dioxide 20.4 mmol/L (21.0-32.0); Chloride 106 mmol/L (98-108); Creatinine, Serum 0.92 mg/dL (0.70-1.20); EST Glomerular Filtration Rate 91 (>60); Estimated Creatinine Clearance 72.99 ml/min (50-250); Glucose 155 mg/dL (70-99); Potassium 3.5 mmol/L (3.3-5.1); Sodium Level 141 mmol/L (133-145)
[2025-02-25 11:41] LABS: Bacteria 1+ /hpf (None Seen); Hyaline Cast 0-5 SEEN /lpf (0-5); Red Blood Cells-Urine 0-5 SEEN /hpf (0-5); Squamous Epithelial Cells - UA 5-10 SEEN /hpf (5-10); White Blood Cells 0-5 SEEN /hpf (0-5)
[2025-02-25 11:57] VITALS: BP 125/63; PULSE 50; RESP 16; TEMP 36.9; O2SAT 100
[2025-02-25 12:00] VITALS: BP 115/55; PULSE 54; RESP 16; TEMP 36.9; O2SAT 100
--- NOTE | 2025-02-25 12:38 | CT_ITS ---
EXAM: CT Abdomen and Pelvis With Intravenous Contrast CLINICAL INDICATION: ABDOMINAL PAIN TECHNIQUE: Axial computed tomography images of the abdomen and pelvis with intravenous contrast. This CT exam was performed using one or more of the following dose reduction techniques: automated exposure control, adjustment of the mA and/or kV according to patient size, and/or use of iterative reconstruction technique. COMPARISON: CT Abdomen Pelvis dated 10/09/2024 FINDINGS: LUNG BASES: Unremarkable. No mass. No consolidation. ABDOMEN: LIVER: Hepatomegaly with fatty infiltration. GALLBLADDER AND BILE DUCTS: Unremarkable. No calcified stones. No ductal dilation. PANCREAS: Unremarkable. No mass. No ductal dilation. SPLEEN: Unremarkable. No splenomegaly. ADRENALS: Unremarkable. No mass. KIDNEYS AND URETERS: Unremarkable. No solid mass. No hydronephrosis. STOMACH AND BOWEL: Fecal retention in the colon consistent with constipation. No obstruction. No mucosal thickening. PELVIS: APPENDIX: No findings to suggest acute appendicitis. BLADDER: Unremarkable. No mass. REPRODUCTIVE: 1.8 cm hypodense lesion of the right adnexa, likely an ovarian cyst. ABDOMEN and PELVIS: INTRAPERITONEAL SPACE: Unremarkable. No free air. No significant fluid collection. BONES/JOINTS: No acute fracture. No dislocation. SOFT TISSUES: Unremarkable. VASCULATURE: Unremarkable. No abdominal aortic aneurysm. LYMPH NODES: Unremarkable. No enlarged lymph nodes. CT/Abdomen/Pelvis W IV Cont ONLY IMPRESSION: 1. Hepatomegaly with fatty infiltration. 2. Fecal retention in the colon consistent with constipation. Reading Location: [facility]
[2025-02-25] MEDS: Metoclopramide 10 MG/2 ML Vial 5 MG IV ×2 (12:53→14:04)
[2025-02-25 12:55] VITALS: BP 95/63; PULSE 50; RESP 16; O2SAT 100
[2025-02-25 14:03] VITALS: BP 123/73; PULSE 65; RESP 12; O2SAT 100
[2025-02-25] MEDS: Lorazepam 2 MG/ML WCH Syringe 1 MG IV (14:05)
[2025-02-25 14:44] VITALS: BP 124/86; PULSE 86; RESP 16; TEMP 36.6; O2SAT 98
== END 2025-02-25 14:46 | disposition home or self-care (01) ==
PROVIDERS: Emergency Provider Emergency Medicine; Visit Provider Emergency Medicine
DX: R11.2 Nausea with vomiting, unspecified (principal); R16.0 Hepatomegaly, not elsewhere classified; R10.9 Unspecified abdominal pain; R19.7 Diarrhea, unspecified; F17.290 Nicotine dependence, other tobacco product, uncomplicated; N39.0 Urinary tract infection, site not specified
CPT/HCPCS: 74177; 80048; 81001; 84703; 85025; 96361; 96372; 96374; 96375; 96376; 99283; Q9967; A4216; J2405